=== PATIENT | female | born 1965 | race Caucasian/White ===

== ENCOUNTER 2018-02-04 13:18 | Day surgery (SDC) | payer BC, OTHER ==
[2018-01-25 12:03] VITALS: BMI 27.8
--- NOTE | 2018-02-04 07:26 | HP ---
History & Physical Update - History History: No Change - Physical Physical: No Change - Assessment Assessment: No Change - Plan Plan: No Change (no interval changes since visit on 01/29/18.)
[~2018-02-04 13:18] MED LIST: BACITRACIN 15 GM TUBE TOPICAL OINTMENT ONE; DEXAMETHASONE SOD PHOSPHATE 4 MG/1 ML VIAL ONE; EPINEPHrine/PF 1 MG/1 ML (1:1,000) AMPULE ONE; HEPARIN NA (PORCINE) 5,000 UNITS/ML 1ML VIAL ONE; LIDOCAINE HCL 1%, 10 MG/ML (20ML VIAL) ONE; LIDOCAINE HCL 2% JELLY (5 ML/TUBE) ONE; LIDOCAINE HCL/PF 2% SDV 5ML VIAL ONE; MIDAZOLAM HCL 2 MG/2 ML SINGLE DOSE VIAL ONE; ONDANSETRON 4 MG/2 ML VIAL IVPB PRN; ONDANSETRON 4 MG/2 ML VIAL ONE; PROPOFOL 20 ML ONE; ROCURONIUM BROMIDE 50 MG/5 ML VIAL ONE; SODIUM CHLORIDE 0.9% P/F 10 ML VIAL IJ ONE; SUCCINYLCHOLINE CHLORIDE 200 MG/10 ML VIAL ONE; ceFAZolin SODIUM 1 GM VIAL ONE; fentaNYL CITRATE 250 MCG/5 ML VIAL ONE; oxyCODONE HCL 5 MG TABLET PO PRN
[2018-02-04] MEDS ORDERED: PROMETHAZINE HCL 25 MG/1 ML VIAL IVPB PRN (13:19)
[2018-02-04] MEDS ORDERED: ONDANSETRON 4 MG/2 ML VIAL IVPUSH PRN (13:19)
--- NOTE | 2018-02-04 13:24 | OP ---
Operative Note - Note: Operative Date: 02/04/18 Pre-Operative Diagnosis: left breast cancer with abdominal pseudohernia of donor site and disproportion of right reconstucted breast Operation: repair of abdominal donor site pseudohernia with revision of right reconstructed breast Findings: in tact prolene mesh on abdomen Post-Operative Diagnosis: Same as Pre-op Surgeon: Jasson Jackman Stock Fitter: Jia Giron Drains & Tubes with Location: RAJENDRA x 2 abdomen Operative Report Dictated: Yes
--- NOTE | 2018-02-04 13:27 | OP ---
Operative Note - Note: Operative Date: 02/04/18 Pre-Operative Diagnosis: Left sided breast cancer with bilateral mastectomy and DEIP flap recontructions, Abdominal hernia Operation: Right breast revision of reconstruction, revision of abdominal hernia , liposuction to flanks Post-Operative Diagnosis: Same as Pre-op Surgeon: Jasson Jackman Sas Developer Analyst: Jia Giron Anesthesiologist/TOLL COLLECTOR: Kin Hawkins Anesthesia: General Specimens Removed: right breast tissue and Abdominal tissue Estimated Blood Loss (mls): 100 Drains & Tubes with Location: RAJENDRA drains x2 at right and left abdomen. Drains, Volume Out (mls): 50 (davey) Fluid Volume Replaced (mls): 1,000 Operative Report Dictated: Yes
--- NOTE | 2018-02-04 13:28 | SURG ---
Surgery Repairer Hairspring Note Repairer Hairspring: Jia Giron PA-C Date of Service: 02/04/18 Diagnosis: Left sided breast cancer with bilateral mastectomy and DEIP flap recontructions , Abdominal hernia Procedure: Revision of right breast reconstruction, Revision of abdominal hernia and liposuction to flanks I was present for the entirety of the operative procedure. For further detail, please refer to operative report. Visit type - Case Type Case Type: Scheduled Admission - Emergency Emergency Visit: No - New patient This patient is new to me today: Yes Date on this admission: 02/04/18
[2018-02-04] MEDS ORDERED: LACTATED RINGERS SOLUTION 1,000 ML IV SCH (13:30)
[2018-02-04] MEDS: HYDROmorphone *PCA* 10MG/50ML DISP.SYRIN PCA SCH ×2 (14:00→15:27)
[2018-02-04] MEDS ORDERED: CEFAZOLIN 1 GM/D5W 1 GRAM/50 ML BAG IVPB SCH ×2 (15:00)
[2018-02-04] MEDS: CEFAZOLIN 1 GM/D5W 1 GRAM/50 ML BAG IVPB SCH ×2 (18:00→23:00)
--- NOTE | 2018-02-04 19:06 | OP ---
DATE OF OPERATION: 02/04/2018 TITLE OF PROCEDURE: 1. Right-sided revision of reconstructed transverse rectus abdominis myocutaneous (TRAM) flap of breast. 2. Repair of abdominal donor site pseudohernia deformity at site of free transverse rectus abdominis myocutaneous repair with Prolene mesh. 3. Bilateral flank liposuction. 4. Bilateral revision of abdominal donor site closure by advancement of local tissues. PREOPERATIVE DIAGNOSIS: Deformity and disproportion of bilateral reconstructed breasts, left-sided breast cancer status post left-sided deep inferior epigastric cap jewel plate assembler artery (ELIZABETH) flap breast reconstruction and right-sided free transverse rectus abdominis myocutaneous (TRAM) flap reconstruction of breast with deformity and disproportion and pseudohernia deformity of abdominal donor site from left-sided free transverse rectus abdominis myocutaneous (TRAM) and mesh abdominal wall reconstruction. ATTENDING SURGEON: Jasson Jackman MD TRACTOR DRIVER: AMBER Quan The patient is marked in the holding area, awake and aware of all incisions and resulting scars. All risks, benefits, and alternatives to the procedure are discussed with the patient, understood. Patient is given 5000 units of subcutaneous heparin preoperatively. Sequential compression stockings and HAMIDA hose are applied preoperatively. She is then given 2 g of Ancef preoperatively, brought to the operating room, placed in supine position. Position is carefully checked by surgical and anesthesia teams. After induction of general anesthesia, all proper padding is applied. Torres catheter is placed, which was removed at the end of the procedure. The patient is then prepped and draped in standard surgical fashion. A timeout is called. Patient, procedure, site, and sides are verified. At this point, patient is brought to a seated upright position where tailor tacking of the breast to assess for the optimal skin excision is made. Markings are confirmed, and incision is made at the site of the existing right-sided mastectomy scar including an inferior limb of the incision which is roughly 2 cm cephalad to the existing inframammary fold. Medially, the excision is skin, subcutaneous fat, and as the excision is tapered laterally, elements of the right-sided TRAM flap are excised to contour the breast to remove lateral fullness. The mastectomy flaps are re-elevated superiorly and inferiorly several centimeters for a distorted closure. Hemostasis then meticulously achieved. The fibrous tissue of the flap is repaired to itself with a series of interrupted, buried, 2-0 Vicryl sutures. The skin of the mastectomy flaps is then closed with a series of interrupted, buried, deep dermal, 3-0 Monocryl suture, followed by a running subcuticular 3-0 Monocryl suture. With the patient brought to a seated upright position, there is excellent symmetry of size and shape noted. Attention is then directed toward the abdomen. An incision is made at the existing scar of the abdominal donor site and dissection carried down to the level of the abdominal wall fascia. Immediately, dissection along the abdominal wall fascia encounters an empty seroma cavity on the patient's right and a well-incorporated Prolene mesh on the left. The dissection is able to be maintained superficial to the mesh to the level of the umbilicus. The umbilicus is then circumcised and dissected on a wide fibrofatty stalk down to level of the abdominal wall fascia. Dissection is then carried along the abdominal wall fascia to the xiphoid process and the midline costal margins bilaterally. Hemostasis is meticulously achieved. The area of the mesh abdominal fascia repair is intact. However, there is attenuation and severe bulging inferior to the umbilicus out to a hernia, although no discrete hernia is identified. The strongest elements of the fascia are identified, and these are repaired to one another with a series of interrupted, buried, [id number] 1 Prolene suture, both inferior and superior to the umbilicus. A second layer of repair is performed with a running, locking 1 Prolene suture overlying the first repair. The endpoint is a flat, even contour to the abdomen. Wide berth is given for the umbilicus for translocation. With the patient brought to a 20-degree flexed position, it is determined that skin in between the previous umbilicus defect and the existing donor site scar is able to be excised without tension. Additionally, 2 cm of skin on the inferior pubic side of the wound are able to be excised. Hemostasis is meticulously achieved. The deep surface of the abdominal donor site flap is defatted of subscarpal fat. Hemostasis is again achieved. The lateral extents of the abdominal donor site scar have distortion with bulging dog ears. These are marked for excision and advancement of the abdominal flap medially to correct for these deformities. Prior to further progress, both flanks are infiltrated with standard wetting solution of 1 L of normal saline, 1 ampule of 1:1000 epinephrine, and 20 mL of 1% lidocaine plain. A total of 1200 mL is used, 600 mL in either flank. While this is being used, a new site for the umbilicus is marked. An inverted Star Trek pattern is used, and a 6 o'clock notch is removed from the umbilicus. The umbilicus is translocated through the abdominoplasty flap and secured with a series of interrupted, buried, deep dermal, 3-0 Monocryl suture, followed by a series of interrupted 4-0 chromic gut suture with 4-0 nylon suture at the barney points. A size 10 flat Terence drain is brought out through the abdominal scar. The right-sided drain is in the superior recess of the wound; the left-sided drain is in the inferior recess of the wound. Closure is then performed with a series of interrupted, superficial fascial system, Stephane layer 2-0 Vicryl suture buried. At this point, liposuction is then performed with a power-assisted MicroAire 4-mm cannula. A total of 450 mL of liposuction aspirate are yielded from either flank on the lower abdomen. The infraumbilical suprapubic skin is pink and viable at the end of this portion of the procedure. The final closure of the abdomen is then performed with a series of interrupted, buried, deep dermal, 3-0 Monocryl suture, followed by a running subcuticular 3-0 V-Loc suture in the mid-dermis. Patient tolerated the procedure well. An abdominal binder is applied, and a breast bra is applied. She is awoken from anesthesia, drain is placed to bulb suction, and she is transferred to Recovery without complication. Charla [id number]
[2018-02-04] MEDS ORDERED: ACETAMINOPHEN 325 MG TABLET (FP) PO PRN (20:04)
[2018-02-04] MEDS ORDERED: oxyCODONE HCL 5 MG TABLET PO PRN (20:04)
[2018-02-04] MEDS: ACETAMINOPHEN 325 MG TABLET (FP) PO PRN (20:14)
[2018-02-04] MEDS: oxyCODONE HCL 5 MG TABLET PO PRN (20:15)
[2018-02-05] MEDS: oxyCODONE HCL 5 MG TABLET PO PRN (02:48)
[2018-02-05] MEDS: ACETAMINOPHEN 325 MG TABLET (FP) PO PRN (02:49)
[2018-02-05] MEDS: CEFAZOLIN 1 GM/D5W 1 GRAM/50 ML BAG IVPB SCH (06:33)
[2018-02-05 06:36] VITALS: BP 121/65; PULSE 94; TEMP 98.3
--- NOTE | 2018-02-05 07:32 | PN ---
Progress Note (short form) - Note Progress Note: All tissues viable, no bleed or collections Ambulating, Using IS VSS AF OK for discharge today
[2018-02-05] MEDS ORDERED: HEPARIN NA (PORCINE) 5,000 UNITS/ML 1ML VIAL SQ SCH (10:00)
[2018-02-05] MEDS ORDERED: ATORVASTATIN CA 20 MG TABLET (FP) PO SCH (10:00)
--- NOTE | 2018-02-06 13:39 | PATH ---
Surgical Pathology Report Patient Name: MIESHA KUHN [facility]. Rec. #: [id number] /Age/Gender: 1965 (Age: 52) / F Account: [id number] Location: [facility] AMBUL[facility]ORY Taken: 02/04/2018 Received: 02/04/2018 Reported: 02/06/2018 Physicians: Jasson Jackman Specimen(s) Received RIGHT BREAST FLAP Clinical History Breast cancer Final Diagnosis FLAP, RIGHT BREAST, REVISION: FIBROADIPOSE TISSUE SHOWING PRIOR BIOPSY SITE CHANGES. SKIN WITH NO PATHOLOGIC FINDINGS. Electronically Signed Jia Parker M.D. Gross Description Received in formalin labeled "right breast flap," is a 23.0 x 4.0 cm in jones, elliptical portion of skin with underlying soft tissue measuring up to 3.5 cm in thickness. The epidermal surface is unremarkable. Sectioning reveals foci of white fibrous tissue. Molding Fitter sections are submitted in 3 cassettes. /02/05/2018 saudi/02/05/2018
== END 2018-02-05 10:55 | disposition home or self-care (01) ==
LOC: FASU 13:18 → FM/S 15:38 → FASU 15:38
PROVIDERS: ATTEND Plastic Surgery
PROC: 0JX80ZB Transfer Abdomen Subcutaneous Tissue and Fascia with Skin and Subcutaneous Tissue, Open Approach (ICD-10-PCS; 2018-02-04)
PROC: 0JD83ZZ Extraction of Abdomen Subcutaneous Tissue and Fascia, Percutaneous Approach (ICD-10-PCS; 2018-02-04)
PROC: 0HRT076 Replacement of Right Breast using Transverse Rectus Abdominis Myocutaneous Flap, Open Approach (ICD-10-PCS; principal; 2018-02-04 08:29)
PROC: 0WQF0ZZ Repair Abdominal Wall, Open Approach (ICD-10-PCS; 2018-02-04 08:29)
DX: N65.0 Deformity of reconstructed breast (principal); C50.911 Malignant neoplasm of unspecified site of right female breast; N65.1 Disproportion of reconstructed breast; M95.8 Other specified acquired deformities of musculoskeletal system; K43.9 Ventral hernia without obstruction or gangrene
CPT/HCPCS: 88304-TC; 94760; J1644